=== PATIENT | female | born 1945 | race Caucasian/White ===

== ENCOUNTER 2016-05-27 16:14 | Emergency (ER) | payer OTHER ==
[2016-05-27 19:57] LABS: HEMOGLOBIN 13.8 gm/dl (12.3-15.3); RED BLOOD COUNT 4.32 M/UL (4.00-5.10)
== END 2016-05-27 22:25 | disposition home or self-care (01) ==
LOC: ER1 16:14
PROVIDERS: Family Medicine
DX: R10.31 Right lower quadrant pain (principal); R05 Cough
CPT/HCPCS: 36415; 80053; 83690; 85025; 99284